=== PATIENT | female | born 1950 | race Caucasian/White ===

== ENCOUNTER → 2023-11-30 11:57 | Outpatient (CLI) | payer MEDICARE, SELFPAY ==
--- NOTE | 2023-11-30 12:05 | EKG_ITS ---
[address] [address] [address] [address] Test Date: 2023-11-30 Pat Name: Stefani Lara Department: [facility] Room: Gender: Female Solutions Development Analyst: NAZANIN : 1950 Requested By: Order Number: [id number] Reading MD: Orlando Desai MD Measurements Intervals [place] Rate: 66 P: 81 AR: 168 QRS: 59 QRSD: 88 T: 69 QT: 434 QTc: 454 Interpretive Statements Normal sinus rhythm Electronically Signed On 12-01-2023 7:56:16 PDT by Orlando Desai MD
[2023-11-30 12:45] LABS: Add Manual Diff / Slide Review NO; Basophils Absolute Auto 100 /uL (0-100); Basophils Percent Auto 0.9 % (0-2); Eosinophils Absolute Auto 200 /uL (0-450); Eosinophils Percent Auto 2.8 % (2-4); Hematocrit 46.8 % (36-46); Hemoglobin 15.8 g/dL (12.0-16.0); Lymphocytes Absolute Auto 1800 /uL (1100-4500); Mean Corpuscular HGB Conc 33.9 % (30-36); Mean Corpuscular Hemoglobin 31.6 PG (26-34); Mean Corpuscular Volume 93.3 fL (80-100); Monocytes Absolute Auto 500 /uL (0-900); Monocytes Percent Auto 8.4 % (3-14); Neutrophils Absolute Auto 3800 /uL (1500-7000); Neutrophils Percent Auto 59.9 % (50-75); Platelet Count 206 X10^3/uL (150-400); Red Blood Cell Count 5.01 X10^6/uL (4.0-5.2); White Blood Cell Count 6.3 X10^3/uL (4.5-11.0)
[2023-11-30 13:06] LABS: Appearance Urine UA CLEAR; Bilirubin Urine UA 1+ (NEGATIVE); Color Urine UA YELLOW; Glucose Urine UA NEGATIVE (Negative); Ketones Urine UA NEGATIVE (NEGATIVE); Leukocyte Esterase Urine UA 1+ (NEGATIVE); Nitrite Urine UA NEGATIVE (Negative); Occult Blood Urine UA 2+ (Negative); Protein Urine UA TRACE (Negative); Specific Gravity Urine UA 1.025 (1.000-1.035)
[2023-11-30 13:08] LABS: BUN Creatinine Ratio 38.7 (6-22); Blood Urea Nitrogen 24 mg/dL (7-17); Calcium 9.6 mg/dL (8.4-10.2); Carbon Dioxide 25 mmol/L (22-32); Chloride 106 mmol/L (98-107); Estimated Glomerular Filt Rate > 60 mL/min (>60); Glucose 94 mg/dL (80-110); HEMOLYSIS < 15 (0-50); Potassium 3.8 mmol/L (3.4-5.1); Sodium 139 mmol/L (137-145)
[2023-11-30 13:16] LABS: Hemoglobin A1C% w Est Avg Glu 5.3 % (4.0-6.0)
[2023-11-30 13:23] LABS: Bacteria Urine Moderate (10-30); Culture Indicated Urine Specimen Cultured; Ictotest Urine Negative (Negative); Mucus Urine 2+ (Negative); RBC Urine 5-10/HPF (0-5/HPF); Squamous Epithelial Cell Urine 10-30 /HPF (0-5/HPF); Urine Volume 10mL (spun); WBC Urine 10-30/HPF (0-5/HPF)
== END ==
LOC: RESP 12:02
PROVIDERS: PCP Physician Assistant Medical; Referring Provider Orthopaedic Surgery; Visit Provider Orthopaedic Surgery
DX: Z01.818 Encounter for other preprocedural examination; R73.9 Hyperglycemia, unspecified; Z01.812 Encounter for preprocedural laboratory examination; N39.0 Urinary tract infection, site not specified
CPT/HCPCS: 80048; 81001; 83036; 85025; 87086; 93005

== ENCOUNTER 2024-01-31 11:43 | Day surgery (SDC) | payer MEDICARE, SELFPAY ==
[2024-01-25 08:05] VITALS: BMI 29.9
[2024-01-31] VITALS (16 sets, daily range): BP systolic 106–159; BP diastolic 58–105; PULSE 60–86; RESP 10–19; TEMP 36.4–37.1; O2SAT 92–100; BMI 29.6
--- NOTE | 2024-01-31 06:00 | DI.RAD.S_ITS ---
PROCEDURE: XR HIP W PEL IF DONE LT 2V INDICATIONS: anterior inner op TECHNIQUE: Intraoperative fluoroscopic images of a left hip arthroplasty COMPARISON: None. FINDINGS: Intraoperative images demonstrate a left hip total arthroplasty in progress. Please see the operative report for further details. IMPRESSION: Intraoperative left hip total arthroplasty. Dictated by: Joshua Borrego M.D. on 01/31/2024 at 18:24 Approved by: Joshua Borrego M.D. on 01/31/2024 at 18:25
[2024-01-31] MEDS: LACTATED RINGERS 1,000 ML 42 ML IV ×3 (12:39→18:57)
[2024-01-31] MEDS: ACETAMINOPHEN 325 MG TABLET 975 MG PO (12:39)
[2024-01-31] MEDS: CELECOXIB 200 MG CAPSULE PO (12:40)
[2024-01-31] MEDS: VANCOMYCIN 1,000 MG/200 ML PIGGYBACK 200 MG IV (13:51)
--- NOTE | 2024-01-31 14:22 | PM.PREOP ---
Pre-operative Note Interval Note History & Physical reviewed/Exam performed by Physician: Yes Changes to H&P: No
--- NOTE | 2024-01-31 14:33 | SUR.OPER ---
Patient supine on padded [place] table, one arm on padded arm board at <90, other arm padded and secured with tape across patient's chest, both legs secured in padded traction boots and positioned per surgeon, padded post at patient's groin, pressure points checked and padded.
[2024-01-31] MEDS: CEFAZOLIN 2 GM/100 ML PREMIX 100 ML IV (14:35)
--- NOTE | 2024-01-31 14:37 | P.OP_ITS ---
Operative Date/Time/Diagnoses Date of procedure: 01/31/24 Time of procedure: 14:30 Pre-op diagnosis: Left hip OA Post-op diagnosis: same Procedure & Clinicians Procedure: Left total hip arthroplasty anterior approach Same procedure as scheduled: Yes Indications: The patient has had progressively worsening left hip pain with radiographic espino ges consistent with arthritis. Non-operative management has failed and the patient has requested total hip replacement. The risks, benefits and alternatives to surgery were discussed with the patient prior to proceeding. Risks discussed included, but were not limited to, failure to relieve pain, leg length discrepancy, dislocation, stiffness, infection, nerve damage, deep venous thrombosis, pulmonary embolism, stroke, coma, heart attack, permanent paralysis and , as well as the potential need for eventual revision of the prosthetic. Surgeon: Jojo Palomo Data Warehouse Consultant: Micheal Baez Click Yes if Unassisted: Yes Anesthesia Type: General and Spinal Operative Notes Findings: Severe left hip OA, adequate stability, adequate bone Closure Type: primary Specimen(s): none sent Prosthetic devices, grafts, tissues, transplants, or devices: Palomo [employer] Nephew polar stem size 1 standard, 50 mm R3, 36 by 50 neutral poly liner,one 6.5 mm screw, 36 x +0 cobalt chrome head Estimated Blood Loss (mL): 250 Blood products transfused: none Procedure in detail: The patient was brought to the operating room. Patient was carefully positioned in the supine position. Time-out was performed and antibiotics were given. Anesthesia was induced. She was positioned in the on the table in order to allow hyperextension of the hip. The left lower extremity was prepped and draped in a standard sterile fashion. An anterior left hip incision was made 1 fingerbreadth lateral to the anterior superior iliac spine and extended distally towards the greater trochanter. Dissection was carried out through skin and subcutaneous tissues. Superficial hemostasis was achieved. The fascia over the tensor fascia azucena was defined and incised with a knife. Two Allis clamps were used to grasp the fascia. Tensor fascia azucena was retracted laterally. A gelpi retractor was placed. Dissection was carried out down along the neck. The circumflex vessels were carefully identified and cauterized with the Aqua Mantis. A PA was used during the procedure and was essential for intraoperative retraction and safe implantation of the components. There was good visualization of the femoral neck. A Cobra was placed superior to the neck and the gluteus fibers were carefully stripped from that superior aspect of the capsule. A 2nd retractor was placed along the inferior aspect of the neck. The rectus insertion along the capsule was partially released. A 3rd retractor that was then gently placed over the rim of the acetabulum under the rectus. Capsule was carefully incised and released from the intertrochanteric line circumferentially superior to the mid sagittal line and inferiorly to the mid sagittal line until the lesser trochanter was palpable. A tag stitch was placed both in the superior and inferior limb of the capsular insertion. Along the acetabulum capsule was also released up to the mid sagittal 12:00 position. A portion of the labrum was resected. A saw was used to perform an osteotomy at the level of the intertrochanteric line and the junction of the superior femoral neck leaving approximately 1 finger breath of residual inferior neck above the lesser trochanter. A 2nd cut was made along the femoral neck at the base of the head and a napkin ring of neck was removed. Corkscrew was placed in the femoral head and the head was removed without difficulty. Retractors were then repositioned around the acetabulum. Residual labrum was resected and additional osteophytes were removed. A reamer that was 4 mm below the templated size was placed by hand in the acetabulum and it was reamed to centralize the acetabulum. It was then reamed up to 2 under the templated size and fluoroscopy was brought in to confirm the position of the reaming and depth of reaming. I reamed 1 under the anticipated size. A trial cup was placed and noted that it was appropriately sized and fluoroscopy confirmed position and depth. The component was open and inserted without difficulty fluoroscopic imaging was used to confirm that the cup had been adequately seated and was well positioned. It was further stabilized with a single screw. Neutral poly liner was placed. The cup was tested and noted to be stable. Attention was then directed to the femur. The femur was gently hyperextended additional capsular release was performed as needed in order to allow adequate visualization of the proximal femur with elevation of the femur. Patient was placed in a hyperextended slightly adducted position with maximum external rotation. Box osteotome was used to check for any residual neck as well as sclerotic bone along the trochanter. [place] pepper was placed in the femur. Additional broaching was performed. Canal finder was used to determine the alignment of the canal and position. Size 1 broach was placed. The canal was then appropriately broached up to the templated size as long as there was adequate stability of the broach and serial advancement of the broach without excessive impingement. Specific attention was directed at avoiding varus attempting to direct the distal aspect of the broach more anteriorly and avoiding excessive anteversion. Trial reduction showed acceptable range of motion, good stability, no posterior impingement, taoist of leg length and appropriate lateral shuck. I also hyperflexed the hip and checked that there was no impingement anteriorly and there was good stability with flexion, adduction and internal rotation. Marcaine and Exparel were injected. The stem was placed without difficulty. Repeat trial reduction and x-ray showed acceptable overall position, length, and no evidence of the femoral fracture. Final head was placed. Wound was meticulously irrigated with normal saline. The hip was reduced and additional Exparel and Marcaine were injected. The capsule was closed with interrupted nonabsorbable sutures. The fascia of the tensor was closed with interrupted and running Vicryl. No drain was placed. Any tensor fascia azucena muscle that appeared to be contused or injured which was a minimal amount was carefully resected. Capsule around the tensor was injected with Exparel and Marcaine. The skin was closed with barbed stitches for the subcutaneous tissue and skin. We also used surgical glue. The wound was dressed sterilely. Brief Betadine soak was also used and was meticulously irrigated with normal saline. Patient was transferred to recovery room in satisfactory con dition. Complications: none Post-operative Condition: stable Disposition: Acute Care Plan for aftercare: The patient will be maintained on a standard total hip replacement protocol with weight bearing as tolerated and anterior hip precautions. The patient will receive Aspirin and sequential compression devices for DVT prophylaxis. The patient will be discharged home when safe for the home environment.
--- NOTE | 2024-01-31 14:37 | PM.PREOP ---
Pre-operative Note Interval Note History & Physical reviewed/Exam performed by Physician: Yes Changes to H&P: No
[2024-01-31] MEDS: TRANEXAMIC ACID 1,000 MG VIAL 1000 MG INJ ×2 (14:40→16:44)
[2024-01-31] MEDS: BUPIVACAINE 0.25% (PF) 60 ML, EPINEPHrine 0.3 MG INJ (15:12)
[2024-01-31] MEDS: BUPIVACAINE LIPOSOME 266 MG/20 ML VIAL INJ (15:12)
[2024-01-31] MEDS: OXYCODONE IR 5 MG TABLET PO (17:30)
--- NOTE | 2024-01-31 17:30 | DI.RAD.S_ITS ---
PROCEDURE: XR HIP W PEL IF DONE LT 2V INDICATIONS: LEFT ANTERIOR HIP TECHNIQUE: 2 view(s) of the hip acquired. COMPARISON: [facility], [place], XR HIP W PEL IF DONE LT 2V, 01/31/2024, 15:49. FINDINGS: Bones: Patient is status post left hip arthroplasty, with hardware components in expected positions. The hip joint appears congruent. The visualized bony structures appear intact. Moderate to severe right hip arthritic change. Soft tissues: Overlying postoperative changes are noted. No suspicious soft tissue densities. IMPRESSION: Expected post-operative appearance of a hip arthroplasty. Dictated by: Jodie Pinto M.D. on 02/01/2024 at 16:08 Approved by: Jodie Pinto M.D. on 02/01/2024 at 16:08
[2024-01-31] MEDS: HYDROMORPHONE 1 MG INJ IV ×2 (17:39→17:49)
[2024-01-31] MEDS: ONDANSETRON 4 MG/2 ML INJ IV (17:39)
--- NOTE | 2024-01-31 18:58 | PC.NURSE ---
Patient arrives to room 1820. she is A&OX4, reports full sensation to BLE's. pain to L hip 08/23. Auacel c/d/i. She is oriented to room. Belongings and call light in reach. Bed alarm on, admission assessment compleeted, IVF running.She tolerates apple juice well this evening, and denies much appetite.SCD's on BLE's. Instructed on IS use. Per her request purewick placed. Due to void by 2029. Continuous monitoring, endorsed to oncoming RN.
[2024-01-31] MEDS: LACTATED RINGERS 1,000 ML 100 ML IV (20:00)
[2024-01-31] MEDS: PANTOPRAZOLE DR 20 MG TABLET PO (22:54)
[2024-02-01] MEDS: LACTATED RINGERS 1,000 ML 100 ML IV (01:04)
--- NOTE | 2024-02-01 01:43 | PC.NURSE ---
Addendum entered by Chrissie Zavala R.N. 02/01/24 06:02: NOC: Pt OOB SBA w/FWW to commode 3x during shift after in/out cath, successfully voiding. Care continues. Original Note: NOC: Pt called for assistance, feeling like she had to urinate but was unable to do so. Mild pain with palpation on the lower abd. 500-700mL detected upon bladder scan. Discussed with rn relief charge, inserted in and out cath per nursing protocol. Pt tolerated in and out cath with no discomfort. Immediate relief felt with output of 550mL clear/yellow urine. Bed low/locked, call light within reach. Will continue to monitor.
[2024-02-01 01:46] VITALS: BP 116/73; PULSE 77; RESP 18; O2SAT 95
[2024-02-01 05:57] LABS: Hematocrit 41.1 % (36-46); Hemoglobin 13.9 g/dL (12.0-16.0)
[2024-02-01 06:00] VITALS: BP 146/86; PULSE 84; RESP 18; O2SAT 97
[2024-02-01] MEDS: ACETAMINOPHEN 325 MG TABLET 650 MG PO (07:06)
--- NOTE | 2024-02-01 07:10 | P.DS_ITS ---
History of Present Illness History of Present Illness Date Patient Seen: 02/01/24 Time Patient Seen: 07:10 Chief complaint: Left EVIE 01/30 Narrative: Operative Date/Time/Diagnoses Date of procedure: 01/31/24 Time of procedure: 14:30 Pre-op diagnosis: Left hip OA Post-op diagnosis: same Procedure & Clinicians Procedure: Left total hip arthroplasty anterior approach Same procedure as scheduled: Yes Indications: The patient has had progressively worsening left hip pain with radiographic changes consistent with arthritis. Non-operative management has failed and the patient has requested total hip replacement. The risks, benefits and alternatives to surgery were discussed with the patient prior to proceeding. Risks discussed included, but were not limited to, failure to relieve pain, leg length discrepancy, dislocation, stiffness, infection, nerve damage, deep venous thrombosis, pulmonary embolism, stroke, coma, heart attack, permanent paralysis and , as well as the potential need for eventual revision of the prosthetic. Surgeon: Jojo Palomo Business Process Specialist: Micheal Baez Click Yes if Unassisted: Yes Anesthesia Type: General and Spinal Operative Notes Findings: Severe left hip OA, adequate stability, adequate bone Closure Type: primary Specimen(s): none sent Prosthetic devices, grafts, tissues, transplants, or devices: Palomo [employer] Nephew polar stem size 1 standard, 50 mm R3, 36 by 50 neutral poly liner,one 6.5 mm screw, 36 x +0 cobalt chrome head Estimated Blood Loss (mL): 250 Blood products transfused: none Discharge Providers Provider Discharge Date: 02/01/24 Primary care physician: Malia Mix PA-C Consults: 01/24/24 15:13 Consult to Anesthesiology Routine Comment: Consulting Provider: Anesthesiologist Reason for consultation: Regional block for post operative pain control Has provider been notified: No 01/31/24 06:00 Consult to Anesthesiology Routine Comment: Consulting Provider: Anesthesiologist Reason for consultation: Regional block for post operative pain control Has provider been notified: No 02/01/24 10:00 Consult to Occupational Therapy Evaluate & Treat Comment: Physician Instructions: Evaluate and treat Consult to Physical Therapy Evaluate & Treat Comment: Physician Instructions: Evaluate and Treat Discharge provider: Radha Saldana PA-C Summary Hospital Course Discharge Diagnosis: Left hip osteoarthritis, s/p left total hip arthroplasty Hospital Course: Humberto's hospital course was remarkable for postop urinary retention, likely associated w/ neuraxial anesthesia. On the morning of POD# 1, she reported that she was straight-cathed overnight and currently had a Purewick in place. At baseline, she has urinary frequency and occasional incontinence. She had not yet been OOB other than to use the bedside commode. She denied N/V. Exam Vital Signs (past 8 hours): - 02/01/24 01:46 02/01/24 06:00 Pulse Rate 77 84 Respiratory Rate 18 18 Blood Pressure 116/73 146/86 H Pulse Oximetry 95 97 Oxygen Delivery Method Nasal Cannula Oxygen Flow Rate 2 Narrative Exam Narrative: 4/5 hip flexors, 5/5 quadriceps, hamstrings, PF, DF, EHL on left. Sensation to light touch intact throughout LLE, calf soft and compressible. Aquacel dressing CDI. Objective Labs 02/01/24 05:10 Labs: Laboratory Results - last 24 hr 02/01/24 05:10 Hgb 13.9 Hct 41.1 PFSH Medical History (Updated 01/25/24 @ 09:22 by Samira Castro RN) Thyroid nodule HTN (hypertension) Surgical History (Updated 01/25/24 @ 09:22 by Samira Castro RN) History of History of tonsillectomy History of D&C (~1991) Social History household members: spouse Smoking Status: Never smoker alcohol intake: current Discharge Assessment & Plan Assessment and Plan Assessment: Left hip osteoarthritis, s/p left total hip arthroplasty Urinary retention following neuraxial anesthetic Plan of Treatment: Discussed w/ pt that I would like her to stay until this afternoon so that she can work w/ PT twice and hopefully urination will normalize. It looks like she didn't leave the OR until after 1700 yesterday. If she is ambulating well and voiding independently, she can discharge home later today with standard post-op protocol: WBAT, anterior hip precautions, ASA 81mg BID for VTE prophylaxis, multimodal pain control, outpt PT, f/u in office as scheduled. If she continues to have urinary retention past noon today, we will consider adding tamsulosin and may keep her another night. She lives in [place], so it is essential that she is confident she can manage with only the help of her and daughter, neither of whom would be comfortable managing urinary retention. Discharge Plan Discharge Plan Patient Disposition: Home Discharge orders & Medications Discharge Orders: Discharge (Order); Ordered 02/01/24 Ordered By: Radha Saldana Prescriptions: Continued acetaminophen [Tylenol 8 Hour] 650 mg Tablet Extended Release 650 mg PO Q8H PRN (Reason: Pain (Scale Score 4-6)) amlodipine 10 mg tablet 10 mg PO DAILY omeprazole 20 mg capsule,delayed release(DR/EC) 20 mg PO DAILY cholecalciferol (vitamin D3) [Vitamin D3] 50 mcg (2,000 unit) Tablet 50 mcg PO DAILY omega-3 fatty acids Capsule 2,000 mg PO DAILY Follow up/Referrals: Jojo Palomo MD [Physician] - 02/14/24 1:00 pm (Follow up w/ EMILY Lara, at [facility] office in [place].) Malia Mix PA-C [Primary Care Provider] - Diet/Activity/Treatments Diet: Diet as Tolerated Activity: WBAT, anterior hip precautions Cold/Heat Therapy: Ice to hip as needed for pain Skin/Wound/Dressing Care Report to your healthcare provider any signs of infection, such as:: chills, fever, night sweats, unusual drainage and unusual redness Dressing: May shower. Leave dressing in place until follow up in office. No bathing or otherwise soaking incision. Call the office if the dressing becomes saturated inside. Visit Report/Discharge Packet Instructions: DI for Hip Replacement, DI for Prescription Opioid Use Stand Alone Forms: Patient Portal/API, Surgery Discharge Discharge Data Primary Care Provider: Malia Mix Attending Provider: Jojo Palomo
[2024-02-01 08:37] VITALS: BP 134/67; PULSE 77; RESP 16; TEMP 36.8; O2SAT 96
[2024-02-01] MEDS: CHOLECALCIFEROL (VITAMIN D3) 1,000 UNIT TABLET 2000 UNIT PO (08:41)
[2024-02-01] MEDS: FISH OIL 1,000 MG CAPSULE 2000 MG PO (08:41)
[2024-02-01] MEDS: AMLODIPINE 5 MG TABLET 10 MG PO (08:41)
--- NOTE | 2024-02-01 10:15 | PT.IIE ---
Current Diagnoses Unilateral primary osteoarthritis, left hip (01/31/24) Surgery Performed Operation Date: 01/31/24 13:45 Actual Procedures p Total Hip Arthroplasty/Anterior Approach(Left) - Jojo Palomo MD Surgical History (Last Updated 01/25/24 @ 09:22 by Samira Castro, RN) History of History of D&C (~1991) History of tonsillectomy Medical History (Last Updated 01/25/24 @ 09:22 by Samira Castro, RN) HTN (hypertension) Thyroid nodule Physical Therapy Inpatient Evaluation/Re-Eval M1 PT/OT-IP Prior Functional Status Start: 02/01/24 12:06 Freq: NEEDED Status: Active Protocol: Document 02/01/24 10:15 AB (Rec: 02/01/24 12:21 AB [id number]) Medical Review Prior Functional Status Medical History Reviewed Yes Communication able to make needs known Mobility and Gait pt stated that she was independent with all mobilities and ambulation without AD Social History Household Members spouse Living Arrangements House Number of Floors (Floors) Two Floors Number of Stairs To Enter/Railing? pt stays on main level of the house 12 steps to enter with R rail ascending Home Environment High Toilet,Built-In Shower Seat Home Equipment Front Wheel Walker,Straight Cane,Grab Bars In Shower Additional Social History Comment pt's daughter also staying with pt for a few days to assist pt has a walk in tub shower pt has an adjustable bed but plans to sleep on her recliner M2 PT-IP Current Condition Start: 02/01/24 12:06 Freq: NEEDED Status: Active Protocol: Document 02/01/24 10:15 AB (Rec: 02/01/24 12:21 AB [id number]) Physical Therapy Current Condition Current Condition Evaluation Date 02/01/24 Treatment Diagnosis s/p L EVIE anterior; difficulty in walking Onset Date 01/31/24 M3 PT-IP Subjective Start: 02/01/24 12:06 Freq: NEEDED Status: Active Protocol: Document 02/01/24 10:15 AB (Rec: 02/01/24 12:21 AB [id number]) Subjective Physical Therapy Visit Type Type Initial Evaluation Visit Start Time 10:15 Visit Stop Time 11:05 Number of [employer] Visits 0 Physical Therapy Visit Comments Patient Comments agreeable to do PT Therapy Pain Assessment Pain When Pain Assessed At Rest Pain Present Pain Present Pain Reported Location left hip Intensity 4 Scale Used Numeric (0 - 10) Pain Behaviors Guarding Pain Management Techniques Apply Cold,Modification of Treatment,Re-positioning, Timing of Activity with Medications M4 PT-IP Mobility and Gait Start: 02/01/24 12:06 Freq: NEEDED Status: Active Protocol: Document 02/01/24 10:15 AB (Rec: 02/01/24 12:21 AB [id number]) PT-Bed Mobility Assessment Supine to Sit Supine to Sit Standby Assistance PT-Transfer Assessment Sit to and From Stand Sit to and from Stand Standby Assistance,Contact Guard Assistance,1 Person Assistance,Use of Upper Extremities Equipment Transfer Assistive Device Gait Belt,Front Wheeled Walker Orthotic/Prosthetic Devices or Brace: No Transfers Transfer Destination Chair,Toilet Transfer Technique ambulated Transfer Ability Level of Assist Standby Assistance,Contact Guard Assistance,1 Person Assistance,Use of Upper Extremities Comments Mobility Comments pt supine in bed and agreeable to do PT. obtained PLOF and home set up from pt. post-op folder provided and reviewed contents. educated pt on L hip anterior precautions. pt requesting to use the toilet. completed supine to sit SBA with HOB elevated. pt stated that she will be sleeping on her lift chair. completed sit to stand CGA and ambulated to the toilet using FWW SBA to CGA. able to complete toileting needs SBA. sit to stand from the toilet using grab bar SBA to CGA. pt ambulated to the sink using FWW SBA. able to maintain standing SBA while completing handwashing. pt ambulated to the chair using FWW SBA. pt agreed to do stair. educated pt on how to do stairs. completed sit to stand from the chair SBA but pt tends to lean to RLE and not use LLE to push and stand. pt sat back down on chair. educated on how to do sit to stand. pt completed again SBA and able to use LLE to push. pt ambulated in the hallway using FWW SBA to occasional CGA ~ 100 ft. stair climbing training: PT educated and demonstrated to pt on how to do stairs. pt completed up/down step using R rail ascending + SPC. pt completed x 2 sets CGA. assisted pt back to her room. ambulated from w/c to chair using FWW SBA. pt sat on the chair and positioned. call light and table placed within reach. pt stated that she will be able to tell her spouse on how to assist her and does not think caregiver trainign is necessary. Gait Assessment Gait Gait Assistance Required: Standby Assistance,Contact Guard Assist Distance (Feet) 100 Able to Maintain Weight Bearing Status Yes During Gait Assistive Devices Assistive Device Gait Belt,Front Wheeled Walker Orthotic/Prosthetic Devices or Brace: No Gait Deviations General Gait Pattern Antalgic,Decreased Feet Clearance,Narrow Based Gait Factors Limiting Gait Function Factors Limiting Gait Function Decreased Activity Tolerance, Difficulty Following Directions,Limited Range of Motion,Pain,Poor Balance,Poor Safety Awareness Stair Climbing Assessment Evaluation Level of Assist On Stairs Contact Guard Assistance,1 Person Assistance Devices Stair Climbing Assistive Devices Straight Cane,Right Railing Technique/Endurance Stair Climbing Direction Ascend and Descend Stair Climbing Technique Step to Step Number of Steps Climbed 3 Query Text: Stair Climbing Set # Repetitions (reps) 2 PT-Balance Assessment Sitting Balance and Reactions Static Sitting Balance Ability Normal Dynamic Sitting Balance Ability Good Standing Balance and Reactions Static Standing Balance Ability Fair Dynamic Standing Balance Ability Fair Device Used FWW M5 PT-IP Objective Assessments Start: 02/01/24 12:06 Freq: NEEDED Status: Active Protocol: Document 02/01/24 10:15 AB (Rec: 02/01/24 12:21 AB [id number]) Orientation Orientation/Cognition Level of Alertness Alert Orientation Name,Place,Situation Language Function Ability No Deficits Noted Safety Awareness Decreased Safety Awareness Memory Description No Deficits Noted Gross Range of Motion Lower Extremity ROM Assessment Within Functional Limits Strength Lower Extremity Strength Hip 3+/5 Knee 4-/5 Coordination Assessment Gross Coordination Gross Coordination WNL Sensation Assessment Sensation Gross Sensation WNL Muscle Tone Muscle Tone WNL Yes M6 PT-IP Treatment Start: 02/01/24 12:06 Freq: NEEDED Status: Active Protocol: Document 02/01/24 10:15 AB (Rec: 02/01/24 12:21 AB [id number]) Physical Therapy Treatment Education Education Provided Precautions,Weight Bearing Status,Post-Op Packet,Safety M7 PT-IP Assessment and Plan Start: 02/01/24 12:06 Freq: NEEDED Status: Active Protocol: Document 02/01/24 10:15 AB (Rec: 02/01/24 12:21 AB [id number]) PT Summary Assessment and Plan Potential Rehabilitation Potential Good Status of Condition at Evaluation Stable Summary Impairments Pain,ROM,Strength,Balance, Coordination,Sensation,Tone, Cognition,Bed Mobility, Transfers,Gait,Activity Tolerance Assessment Summary pt is a 73 y/o F s/p L EVIE anterior approach POD 1. pt has L hip anterior precautions and is WBAT. pt requiring SBA to CGA with mobility using FWW and plans to go home and spouse to assist him. pt may go home when medically stable. pt has outpt PT set up. Goals Bed Mobility Goal Independent Transfer Goal Independent,Front Wheeled Walker Gait Goal Independent,Front Wheel Walker Gait Distance 200 Other Goals up/down 12 steps R rail ascending + SPC mod I Days to Meet Goals 5 Frequency of Treatment Frequency Of Treatment Twice a Day Treatment Plan Physical Therapy Treatment Plan Bed Mobility Training,Transfer Training,Gait Training, Therapeutic Exercise,Balance Retraining,Post Op Education, Discharge Planning,Hot or Cold Pack,Neuromuscular Re-ed, Coordination Retraining,Manual Therapy Precautions Anterior Hip Precautions No Hip Extension,No Hip External Rotation Weight Bearing Status Weight Bearing Status Weight Bear as Tolerated Allowed Weight Bearing Amount (enter % LLE WBAT or #) (%) Recommendations To Nursing Amount of Assist Needed 1 Person Assist Discharge Recommendations PT Discharge Recommendations Home with Assistance, Outpatient PT Transportation Needs at Discharge Private Vehicle
--- NOTE | 2024-02-01 11:53 | OT.IP.EVAL ---
Current Diagnoses Unilateral primary osteoarthritis, left hip (01/31/24) Surgery Performed Operation Date: 01/31/24 13:45 Actual Procedures p Total Hip Arthroplasty/Anterior Approach(Left) - Jojo Palomo MD Past Medical History (Last Updated 01/25/24 @ 09:22 by Samira Castro, RN) HTN (hypertension) Thyroid nodule Surgical History (Last Updated 01/25/24 @ 09:22 by Samira Castro, RN) History of History of D&C (~1991) History of tonsillectomy Occupational Therapy Inpatient Evaluation/Re-Eval M2 OT-IP Current Condition Start: 02/01/24 11:54 Freq: Status: Active Protocol: Document 02/01/24 11:55 [facility] (Rec: 02/01/24 12:11 [facility] [id number]) Occupational Therapy Current Condition Current Condition Evaluation Date 02/01/24 Treatment Diagnosis S/P L EVIE Anterior Diagnosis Onset Date 01/31/24 Post Operative Precautions Anterior Hip Precautions No Hip Extension,No Hip External Rotation M3 OT- IP Subjective and Pain Start: 02/01/24 11:54 Freq: Status: Active Protocol: Document 02/01/24 11:55 [facility] (Rec: 02/01/24 12:11 [facility] [id number]) OT- Subjective Occupational Therapy Visit Type Type Initial Evaluation Visit Start Time 11:23 Visit Stop Time 11:53 Occupational Therapy Visit Comments Patient Comments Pt agreed to get up to use the bathroom and get dressed. Patient/Caregiver Goals TO go home. OT Pain Assessment Pain When Pain Assessed At Rest Pain Present Pain Present Pain Reported Location left hip Intensity 3 Scale Used Numeric (0 - 10) M4 OT- IP ADL's Start: 02/01/24 11:54 Freq: Status: Active Protocol: Document 02/01/24 11:55 [facility] (Rec: 02/01/24 12:11 [facility] [id number]) OT DUI-[id number] General Evaluation Self-Feeding Ability Independent OT ADL-Grooming General Evaluation Grooming Ability Standby Assistance Areas Needing Assistance Retrieving/Set-up of Grooming Items Comments OT Grooming Comments ABle to do while standing at the sink with FWW. OT ADL-Oral Care General Eval Oral Care Ability Independent OT ADL-Dressing General Eval Upper Body Dressing Ability Independent Lower Body Dressing Ability Contact Guard Assistance Comments OT Dressing Comments Pt able to lean forwards to get her underwear on and needing CGA for balance while pulling them up over her hips. Suggested to use one hand to hang onto the FWW or surface while using the other hand to assist for clothing management needs. OT ADL-Toileting General Evaluation Toileting Ability Standby Assistance Comments OT Toileting Comments Pt states goes 5-7 times at night and states the bathroom is close by to the recliner. Suggested pt would greatly benefit from BSC and toilet paper aid. Pt refusing. OT ADL-Bathing Comments OT Bathing Comments Spoke of care for dressing needs while showering . M5 OT- IP IADL's Start: 02/01/24 11:54 Freq: Status: Active Protocol: Document 02/01/24 11:55 [facility] (Rec: 02/01/24 12:11 [facility] [id number]) OT-Instrumental Activities of Daily Living Deficits IADL Deficits Identified Deficits Home Safety Awareness Awareness of Need for Assistance at Home Good Awareness Ability to Problem Solve Emergency Able to Problem Solve Situations Medication Management Medication Management No Deficits Identified Money Management Money Management Caregiver Provides Assistance Meal Preparation Meal Preparation Caregiver Provides Assist Bet Taker Bet Taker Caregiver Provides Assist M6 OT- IP Functional Cognition Start: 02/01/24 11:54 Freq: Status: Active Protocol: Document 02/01/24 11:55 [facility] (Rec: 02/01/24 12:11 [facility] [id number]) Cognitive Factors Limiting Selfcare Function Cognitive Ability Level of Alertness Alert Patient Orientation Name,Age,Birthday,Month,Date, Year,Day of Week,Place, Situation Attention Span Ability Capable of Focused Attention, Capable of Sustained Attention Ability to Follow Commands Able to Follow One Step Commands Memory Description No Deficits Noted Cognitive Comments Cognitive Assessment Comments Pt intact and able to follow commands for ADL and mobility needs. OT- Vision and Hearing OT- Hearing Assessment OT- Hearing Assessment WFL OT- Vision Assessment Visual Acuity Glasses All The Time Visual Attentiveness WFL Occular Pursuits WFL M7 OT- IP Mobility and Balance Start: 02/01/24 11:54 Freq: Status: Active Protocol: Document 02/01/24 11:55 [facility] (Rec: 02/01/24 12:11 [facility] [id number]) OT-Transfer Assessment Sit to and From Stand Sit to and from Stand Standby Assistance,Contact Guard Assistance Transfers Transfer Ability Standby Assistance Technique Transfer Destination Chair,Toilet Transfer Technique Stand Step Pivot Devices Transfer Assistive Devices Gait Belt,Front Wheeled Walker Comments Mobility Comments CGA to SBA to stand depending on height or surfaces and reminders to tighten her quads when standing on her LLE. OT- Balance Assessment Sitting Balance and Reactions Static Sitting Balance Ability Normal Dynamic Sitting Balance Ability Good Standing Balance and Reactions Static Standing Balance Ability Good Dynamic Standing Balance Ability Fair M8 OT- IP Objective Assessments Start: 02/01/24 11:54 Freq: Status: Active Protocol: Document 02/01/24 11:55 [facility] (Rec: 02/01/24 12:11 [facility] [id number]) OT Gross Range of Motion Upper Extremity Range of Motion Assessment Within Functional Limits OT Strength Upper Extremity Strength Assessment Within Functional Limits M9 OT- IP Assessment and Plan Start: 02/01/24 11:54 Freq: Status: Active Protocol: Document 02/01/24 11:55 [facility] (Rec: 02/01/24 12:11 [facility] [id number]) OT Summary Assessment and Plan Potential Rehabilitation Potential Excellent Analytic Complexity at Evaluation Low Summary OT Impairments Pain,Balance,Functional Mobility,Dressing,Toileting, Bathing,Toilet Transfers, Shower Transfers Progress Towards Goals Progressing Toward Goals Assessment Summary Pt low complexity and main barriers are pain, steps, and will need assist for ADL and IADL needs. Pt to go home with assist and have outpt PT. Goals Dressing Goal Independent Toileting Goal Independent Bathing Goal Standby Assistance Toilet Transfer Goal Independent Shower Transfer Goal Standby Assistance Days to Meet Goals 5 Frequency of Treatment Other frequency 5x/week Treatment Plan OT Treatment Plan ADL Training,Functional Mobility,Patient/Family Education,Discharge Planning Discharge Recommendations OT Discharge Recommendations Home with Assistance, Outpatient PT Home Equipment Needs BSC, toilet paper aid Transportation Needs at Discharge Private Vehicle
--- NOTE | 2024-02-01 12:27 | CM.DANOTE ---
Discharge Planning/Care Management CM Discharge Assessment Start: 02/01/24 12:18 Freq: Status: Active Protocol: Document 02/01/24 12:24 [facility] (Rec: 02/01/24 12:27 [facility] [id number]) Discharge Planning Assessment Assigned Paper Pattern Inspector MELISA Kimball DPOA/Assigned Designee Name Scott Gaines, spouse Contact Information [phone] Advance Directives? Yes Advance Directives on File No History Provided By Patient,Medical Record Prior Living Arrangements House Household Members spouse Type of transporation used prior to Drives own vehicle admit Independent with ADL's Yes Is patient alert and oriented? Yes Patient/Family Preference OP PT Therapy Barriers to Discharge No Comment Patient is POD1 from [facility]. Patient had planned for return home and has been cleared by therapies for this plan. No needs from this CM team identified. Family to transport home. Discharge Plan Home Transportation Arrangement Spouse Referrals Initiated None needed
--- NOTE | 2024-02-01 12:29 | PC.NURSE ---
Day shift: Discharge instructions gone over with patient. Patient stated understanding, all questions answered. PIV removed prior to discharge. All belongings with patient. PCT Carolyn escorted patient via wheelchair to exit where spouse plans to drive her home.
== END 2024-02-01 12:20 | disposition home or self-care (01) ==
LOC: OR 11:44 → AC 11:45
PROVIDERS: Orthopaedic Surgery Orthopaedic Surgery of the Spine; PCP Physician Assistant Medical; Referring Provider Physician Assistant Medical; Visit Provider Orthopaedic Surgery
PROC: (CPT 27130; principal; 2024-01-31 13:45)
DX: M16.12 Unilateral primary osteoarthritis, left hip (principal); M25.752 Osteophyte, left hip
CPT/HCPCS: 27130; 73502; 76000; 85014; 85018; 97116; 97161; 97165; 97530; 97535; C1776; A9270; C9290; J0171; J0690; J1100; J1170; J2405; J2704